=== PATIENT | female | born 1985 | race African-American/Black ===

== ENCOUNTER 2017-07-29 18:00 | Emergency (ER) | payer SELFPAY, OTHER | END 2017-07-29 19:18 | disposition left against medical advice (07) | LOC: FTE 19:18 | DX: Z53.21 Procedure and treatment not carried out due to patient leaving prior to being seen by health care provider (principal) ==

== ENCOUNTER 2017-07-29 19:05 | Outpatient (CLI) | payer OTHER | END 2017-07-29 23:05 | disposition home or self-care (01) | LOC: OBT 19:05 → L-D 19:07 → OBT 23:05 | DX: O62.9 Abnormality of forces of labor, unspecified (principal); Z3A.28 28 weeks gestation of pregnancy | CPT/HCPCS: 76815; 76817 ==

== ENCOUNTER 2017-09-11 06:06 | Inpatient (IN) | payer OTHER ==
[2017-09-11] MEDS: LACTATED RINGER'S 1,000 ML IV ×3 (06:41→23:07)
[2017-09-11] MEDS ORDERED: IBUPROFEN 600 MG TAB PO (07:00)
[2017-09-11] MEDS ORDERED: BUTORPHANOL 1 MG INJ IV (07:00)
[2017-09-11] MEDS ORDERED: CARBOPROST 250 MCG INJ IM (07:00)
[2017-09-11] MEDS ORDERED: CA GLUCONATE (GM) 10% 10ML INJ IV (07:00)
[2017-09-11] MEDS ORDERED: MISOPROSTOL 200 MCG TAB PR (07:00)
[2017-09-11] MEDS: LORAZEPAM 2 MG INJ IV (07:00)
[2017-09-11] MEDS ORDERED: METHYLERGONOVINE 0.2 MG INJ IM (07:00)
[2017-09-11] MEDS ORDERED: MIDAZOLAM 1 MG/ML 2 ML INJ (07:00)
[2017-09-11] MEDS ORDERED: BUTORPHANOL 2 MG INJ IV (07:00)
[2017-09-11] MEDS ORDERED: OXYTOCIN 30 UNITS/LR 500 ML IV ×2 (07:00)
[2017-09-11] MEDS ORDERED: LIDOCAINE 1% (MPF) 30 ML INJ INJ (07:00)
[2017-09-11] MEDS: LEVETIRACETAM 1000 MG (PMX) 100 ML IVPB (07:07)
[2017-09-11 07:29] LABS: ADD MAN DIFF? NO
[2017-09-11 07:31] LABS: WHITE BLOOD COUNT 19.5 10^3/ul (4.8-10.8)
[2017-09-11 07:31] LABS: BASOPHILS % 0.2 % (0.0-2.0); EOSINOPHILS # 0.1 10^3/ul (0.0-0.5); EOSINOPHILS % 0.3 % (0.0-7.0); HEMATOCRIT 25.9 % (37.0-47.0); HEMOGLOBIN 8.7 g/dl (12.0-16.0); LYMPHOCYTES # 0.9 10^3/ul (0.8-2.9); LYMPHOCYTES % 4.7 % (15.0-51.0); MEAN CORPUSCULAR HEMOGLOBIN 26.8 pg (29.0-33.0); MEAN CORPUSCULAR HGB CONC 33.6 g/dl (32.0-37.0); MEAN CORPUSCULAR VOLUME 79.7 fl (82.0-101.0); MEAN PLATELET VOLUME 9.8 fl (7.4-10.4); MONOCYTE # 0.6 10^3/ul (0.3-0.9); MONOCYTES % 2.9 % (0.0-11.0); NEUTROPHIL # 17.7 10^3/ul (1.6-7.5); PLATELET COUNT 236 10^3/UL (140-415); RED BLOOD COUNT 3.25 10^6/ul (4.20-5.40); RED CELL DISTRIBUTION WIDTH 16.4 % (11.5-14.5)
[2017-09-11] MEDS: MAGNESIUM SULFATE 20 GM/500 ML 500 ML IV ×2 (07:34→18:20)
[2017-09-11] MEDS: morphine 4 MG/ML VIAL IV (07:38)
[2017-09-11 07:58] LABS: INR 1.16; PT RATIO 1.2
[2017-09-11 07:59] LABS: PARTIAL THROMBOPLASTIN TIME 31.5 Sec (25.0-35.0)
[2017-09-11 08:22] LABS: HEPATITIS B SURFACE ANTIGEN NEGATIVE (NEGATIVE)
[2017-09-11] MEDS: OXYTOCIN 30 UNITS/LR 500 ML IV (09:37)
[2017-09-11] MEDS: morphine 2 MG INJ IV ×2 (11:58→21:53)
[2017-09-11 12:48] LABS: MAGNESIUM 4.8 mg/dl (1.7-2.5)
[2017-09-11] MEDS: IBUPROFEN 600 MG TAB PO ×2 (13:13→18:09)
[2017-09-11 15:20] LABS: RAPID PLASMA REAGIN REACTIVE (NR)
[2017-09-11 18:50] LABS: MAGNESIUM 5.6 mg/dl (1.7-2.5)
[2017-09-11] MEDS: LEVETIRACETAM 500 MG (PMX) 100 ML IVPB (20:49)
[2017-09-11] MEDS: LACOSAMIDE (100 MG/10 ML PO SYR) PO (22:30)
[2017-09-12] MEDS: LACOSAMIDE (100 MG/10 ML PO SYR) PO ×2 (00:04→10:24)
[2017-09-12] MEDS: IBUPROFEN 600 MG TAB PO ×3 (00:24→12:00)
[2017-09-12 00:47] LABS: MAGNESIUM 3.2 mg/dl (1.7-2.5)
[2017-09-12] MEDS: morphine 2 MG INJ IV ×3 (01:02→07:05)
[2017-09-12] MEDS: MAGNESIUM SULFATE 20 GM/500 ML 500 ML IV (03:24)
[2017-09-12 05:47] LABS: ADD MAN DIFF? NO
[2017-09-12 05:50] LABS: WHITE BLOOD COUNT 16.7 10^3/ul (4.8-10.8)
[2017-09-12 05:50] LABS: BASOPHILS % 0.2 % (0.0-2.0); EOSINOPHILS # 0.2 10^3/ul (0.0-0.5); HEMATOCRIT 25.8 % (37.0-47.0); HEMOGLOBIN 8.5 g/dl (12.0-16.0); LYMPHOCYTES % 11.9 % (15.0-51.0); MEAN CORPUSCULAR HEMOGLOBIN 26.2 pg (29.0-33.0); MEAN CORPUSCULAR HGB CONC 32.9 g/dl (32.0-37.0); MEAN CORPUSCULAR VOLUME 79.6 fl (82.0-101.0); MEAN PLATELET VOLUME 9.2 fl (7.4-10.4); MONOCYTE # 0.8 10^3/ul (0.3-0.9); MONOCYTES % 4.5 % (0.0-11.0); NEUTROPHIL # 13.7 10^3/ul (1.6-7.5); NEUTROPHILS % 81.8 % (39.0-77.0); PLATELET COUNT 252 10^3/UL (140-415); RED BLOOD COUNT 3.24 10^6/ul (4.20-5.40); RED CELL DISTRIBUTION WIDTH 16.7 % (11.5-14.5)
[2017-09-12] MEDS: LACTATED RINGER'S 1,000 ML IV (05:57)
[2017-09-12 06:14] LABS: ALANINE AMINOTRANSFERASE 22 IU/L (13-69); ALKALINE PHOSPHATASE 100 IU/L (42-121); ANION GAP 8 (8-16); ASPARTATE AMINO TRANSFERASE 23 IU/L (15-46); BILIRUBIN,INDIRECT 0.1 mg/dl (0-1.1); BILIRUBIN,TOTAL 0.1 mg/dl (0.2-1.3); CALCIUM 7.8 mg/dl (8.4-10.2); CARBON DIOXIDE 22 mmol/L (21-31); CHLORIDE 113 mmol/L (97-110); CREATININE 0.49 mg/dl (0.44-1.00); GLUCOSE 114 mg/dl (70-220); SODIUM 139 mmol/L (135-144); URIC ACID 3.9 mg/dl (3.1-7.9)
[2017-09-12 06:15] LABS: BLOOD UREA NITROGEN < 2 mg/dl (7-20)
[2017-09-12 06:17] LABS: MAGNESIUM 3.9 mg/dl (1.7-2.5)
[2017-09-12] MEDS: LEVETIRACETAM 500 MG (PMX) 100 ML IVPB (08:51)
[2017-09-13 19:26] LABS: FLUORESCENT TREPONEMAL AB REACTIVE (NON-REACTIVE)
== END 2017-09-12 14:35 | disposition left against medical advice (07) | DRG 775 ==
LOC: OBT 06:06 → L-D 06:10 → ICU 09:03
PROVIDERS: Obstetrics & Gynecology
PROC: 10E0XZZ Delivery of Products of Conception, External Approach (ICD-10-PCS; principal; 2017-09-11)
DX: O60.12X0 Preterm labor second trimester with preterm delivery second trimester, not applicable or unspecified (principal); O99.355 Diseases of the nervous system complicating the puerperium; O99.13 Other diseases of the blood and blood-forming organs and certain disorders involving the immune mechanism complicating the puerperium; Z37.0 Single live birth; Z3A.27 27 weeks gestation of pregnancy; G40.901 Epilepsy, unspecified, not intractable, with status epilepticus; D72.829 Elevated white blood cell count, unspecified
CPT/HCPCS: 71045; 80053; 83735; 84560; 85025; 85610; 85730; 86592; 86850; 86900; 86901; 87340; 88307; 95819; 99464

== ENCOUNTER 2017-11-09 17:17 | Emergency (ER) | payer OTHER ==
[2017-11-09 17:58] LABS: ADD MAN DIFF? NO
[2017-11-09 18:23] LABS: WHITE BLOOD COUNT 5.6 10^3/ul (4.8-10.8)
[2017-11-09 18:23] LABS: ANION GAP 13 (8-16); BLOOD UREA NITROGEN 10 mg/dl (7-20); CALCIUM 9.1 mg/dl (8.4-10.2); CARBON DIOXIDE 24 mmol/L (21-31); CHLORIDE 108 mmol/L (97-110); CREATININE 0.68 mg/dl (0.44-1.00); GLUCOSE 97 mg/dl (70-220); POTASSIUM 4.3 mmol/L (3.5-5.1); SODIUM 141 mmol/L (135-144)
[2017-11-09 18:24] LABS: BASOPHILS % 0.4 % (0.0-2.0); EOSINOPHILS # 0.2 10^3/ul (0.0-0.5); EOSINOPHILS % 2.7 % (0.0-7.0); HEMATOCRIT 36.7 % (37.0-47.0); HEMOGLOBIN 11.8 g/dl (12.0-16.0); IMMATURE GRANS #M 0.01 10^3/ul; IMMATURE GRANS % (M) 0.2 %; LYMPHOCYTES # 1.3 10^3/ul (0.8-2.9); MEAN CORPUSCULAR HGB CONC 32.2 g/dl (32.0-37.0); MEAN CORPUSCULAR VOLUME 77.8 fl (82.0-101.0); MEAN PLATELET VOLUME 8.6 fl (7.4-10.4); MONOCYTE # 0.3 10^3/ul (0.3-0.9); MONOCYTES % 5.9 % (0.0-11.0); NEUTROPHIL # 3.8 10^3/ul (1.6-7.5); NEUTROPHILS % 67.8 % (39.0-77.0); PLATELET COUNT 346 10^3/UL (140-415); RED BLOOD COUNT 4.72 10^6/ul (4.20-5.40); RED CELL DISTRIBUTION WIDTH 16.7 % (11.5-14.5)
== END 2017-11-09 19:00 | disposition home or self-care (01) ==
LOC: E/R 17:17
DX: G40.909 Epilepsy, unspecified, not intractable, without status epilepticus (principal); R25.1 Tremor, unspecified; R40.2362 Coma scale, best motor response, obeys commands, at arrival to emergency department; R40.2252 Coma scale, best verbal response, oriented, at arrival to emergency department; R40.2132 Coma scale, eyes open, to sound, at arrival to emergency department
CPT/HCPCS: 36415; 80048; 82962; 85025; 99283

== ENCOUNTER 2017-12-20 14:47 | Emergency (ER) | payer OTHER ==
[2017-12-20 15:07] LABS: ADD MAN DIFF? NO
[2017-12-20 15:37] LABS: ANION GAP 11 (8-16); BLOOD UREA NITROGEN 4 mg/dl (7-20); CALCIUM 8.8 mg/dl (8.4-10.2); CARBON DIOXIDE 22 mmol/L (21-31); CHLORIDE 113 mmol/L (97-110); GLUCOSE 103 mg/dl (70-220)
[2017-12-20] MEDS: SOD CHLORIDE 0.9% 1,000 ML IV (15:45)
[2017-12-20 15:49] LABS: SODIUM 141 mmol/L (135-144)
[2017-12-20 15:56] LABS: WHITE BLOOD COUNT 4.4 10^3/ul (4.8-10.8)
[2017-12-20 15:56] LABS: BASOPHILS % 0.5 % (0.0-2.0); EOSINOPHILS # 0.3 10^3/ul (0.0-0.5); HEMATOCRIT 38.9 % (37.0-47.0); HEMOGLOBIN 12.1 g/dl (12.0-16.0); LYMPHOCYTES # 2.2 10^3/ul (0.8-2.9); LYMPHOCYTES % 49.4 % (15.0-51.0); MEAN CORPUSCULAR HEMOGLOBIN 24.4 pg (29.0-33.0); MEAN CORPUSCULAR HGB CONC 31.1 g/dl (32.0-37.0); MEAN CORPUSCULAR VOLUME 78.6 fl (82.0-101.0); MEAN PLATELET VOLUME 9.5 fl (7.4-10.4); MONOCYTE # 0.4 10^3/ul (0.3-0.9); NEUTROPHIL # 1.6 10^3/ul (1.6-7.5); NEUTROPHILS % 35.9 % (39.0-77.0); PLATELET COUNT 317 10^3/UL (140-415); RED BLOOD COUNT 4.95 10^6/ul (4.20-5.40); RED CELL DISTRIBUTION WIDTH 16.8 % (11.5-14.5)
[2017-12-20 15:59] LABS: ADD UMIC YES; POSITIVE DIFF @See below; UR ASCORBIC ACID NEGATIVE (NEGATIVE); UR BACTERIA FEW /HPF (NONE SEEN); UR BILIRUBIN (Dip) NEGATIVE (NEGATIVE); UR BLOOD (Dip) 1+ mg/dL (NEGATIVE); UR CLARITY CLEAR (CLEAR); UR COLOR YELLOW (YELLOW); UR GLUCOSE (Dip) NEGATIVE (NEGATIVE); UR KETONES (Dip) NEGATIVE (NEGATIVE); UR LEUKOCYTE ESTERASE (Dip) NEGATIVE Leu/ul (NEGATIVE); UR NITRITE (Dip) NEGATIVE (NEGATIVE); UR RBC 6 /HPF (0-5); UR SPECIFIC GRAVITY (Dip) 1.009 (1.003-1.030); UR SQUAMOUS EPITHELIAL CELL FEW /HPF (FEW); UR TOTAL PROTEIN (Dip) NEGATIVE (NEGATIVE); UR UROBILINOGEN (Dip) NEGATIVE (NEGATIVE); UR WBC 0 /HPF (0-5)
[2017-12-20 16:27] LABS: ANISOCYTOSIS 2+ (0-0); EOSINOPHILS % (M) 4 % (0-7); GIANT THROMBO% (M) 1 % (0-0); LYMPHOCYTES #M 2.8 10^3/ul (0.8-2.9); LYMPHOCYTES % (M) 65 % (15-51); MICROCYTOSIS 1+ (0-0); MONOCYTE #M 0.2 10^3/ul (0.3-0.9); MONOCYTES % (M) 6 % (0-11); OVALOCYTES 2+ (0-0); PLATELET ESTIMATE NORMAL; POIKILOCYTOSIS 3+ (0-0); SEGMENTED NEUTROPHILS (M) % 25 % (39-77); SMUDGE%M 13 % (0-0); TEAR DROP CELLS 1+ (0-0)
== END 2017-12-20 16:37 | disposition home or self-care (01) ==
LOC: E/R 14:47
DX: R42 Dizziness and giddiness (principal); R40.2142 Coma scale, eyes open, spontaneous, at arrival to emergency department; R40.2362 Coma scale, best motor response, obeys commands, at arrival to emergency department; R40.2252 Coma scale, best verbal response, oriented, at arrival to emergency department
CPT/HCPCS: 36415; 71045; 80048; 81001; 81025; 82962; 85025; 93005; 99285-25

== ENCOUNTER 2017-12-29 16:56 | Emergency (ER) | payer OTHER ==
[2017-12-29] MEDS: LORAZEPAM 2 MG INJ IV (17:25)
[2017-12-29] MEDS: SOD CHLORIDE 0.9% 1,000 ML IV (17:28)
[2017-12-29 17:37] LABS: ADD MAN DIFF? NO
[2017-12-29 17:40] LABS: BASOPHILS % 0.4 % (0.0-2.0); EOSINOPHILS # 0.1 10^3/ul (0.0-0.5); EOSINOPHILS % 1.1 % (0.0-7.0); HEMATOCRIT 34.9 % (37.0-47.0); HEMOGLOBIN 11.3 g/dl (12.0-16.0); LYMPHOCYTES # 1.5 10^3/ul (0.8-2.9); LYMPHOCYTES % 28.5 % (15.0-51.0); MEAN CORPUSCULAR HEMOGLOBIN 24.7 pg (29.0-33.0); MEAN CORPUSCULAR HGB CONC 32.4 g/dl (32.0-37.0); MEAN CORPUSCULAR VOLUME 76.2 fl (82.0-101.0); MEAN PLATELET VOLUME 8.9 fl (7.4-10.4); MONOCYTE # 0.3 10^3/ul (0.3-0.9); MONOCYTES % 5.1 % (0.0-11.0); NEUTROPHIL # 3.5 10^3/ul (1.6-7.5); NEUTROPHILS % 64.7 % (39.0-77.0); PLATELET COUNT 369 10^3/UL (140-415); RED BLOOD COUNT 4.58 10^6/ul (4.20-5.40); RED CELL DISTRIBUTION WIDTH 16.5 % (11.5-14.5)
[2017-12-29 17:40] LABS: WHITE BLOOD COUNT 5.3 10^3/ul (4.8-10.8)
[2017-12-29 17:59] LABS: ALANINE AMINOTRANSFERASE 14 IU/L (13-69); ALBUMIN 3.9 g/dl (3.3-4.9); ALBUMIN/GLOBULIN RATIO 1.34; ALKALINE PHOSPHATASE 60 IU/L (42-121); ANION GAP 8 (8-16); ASPARTATE AMINO TRANSFERASE 18 IU/L (15-46); BILIRUBIN,INDIRECT 0.3 mg/dl (0-1.1); BILIRUBIN,TOTAL 0.3 mg/dl (0.2-1.3); BLOOD UREA NITROGEN 3 mg/dl (7-20); CARBON DIOXIDE 26 mmol/L (21-31); CHLORIDE 112 mmol/L (97-110); CREATININE 0.77 mg/dl (0.44-1.00); GLUCOSE 95 mg/dl (70-220); POTASSIUM 3.9 mmol/L (3.5-5.1); SODIUM 142 mmol/L (135-144); TOTAL PROTEIN 6.8 g/dl (6.1-8.1)
[2017-12-29 18:01] LABS: ETHANOL < 10.0 mg/dl
== END 2017-12-29 19:36 | disposition home or self-care (01) ==
LOC: E/R 19:36
DX: G40.909 Epilepsy, unspecified, not intractable, without status epilepticus (principal); R40.2142 Coma scale, eyes open, spontaneous, at arrival to emergency department; R40.2252 Coma scale, best verbal response, oriented, at arrival to emergency department; R40.2362 Coma scale, best motor response, obeys commands, at arrival to emergency department
CPT/HCPCS: 80053; 80307; 84703; 85025; 96374; 99284-25

== ENCOUNTER 2017-12-30 15:21 | Emergency (ER) | payer OTHER ==
[2017-12-30] MEDS ORDERED: SOD CHLORIDE 0.9% 1,000 ML IV (16:00)
[2017-12-30] MEDS ORDERED: DIPHENHYDRAMINE 50 MG INJ IV (16:00)
[2017-12-30 16:05] LABS: URINE BLOOD (Dip) POC 3+ (NEGATIVE); URINE GLUCOSE (Dip) POC Negative (NEGATIVE); URINE KETONES (Dip) POC Negative (NEGATIVE); URINE LEUKOCYTE EST (Dip) POC Negative (NEGATIVE); URINE NITRITE (Dip) POC Negative (NEGATIVE); URINE TOTAL PROTEIN POC Negative (NEGATIVE)
[2017-12-30] MEDS: DIPHENHYDRAMINE 50 MG INJ IM (16:38)
[2017-12-30 17:38] LABS: AMPHETAMINE/METHAMPHETAMINE Negative (NEGATIVE); BARBITURATES Negative (NEGATIVE); BENZODIAZEPINES Negative (NEGATIVE); CANNABINOIDS Positive (NEGATIVE); COCAINE Negative (NEGATIVE); OPIATES Negative (NEGATIVE)
== END 2017-12-30 18:50 | disposition home or self-care (01) ==
LOC: E/R 15:21
DX: R31.9 Hematuria, unspecified (principal); G47.00 Insomnia, unspecified; F12.10 Cannabis abuse, uncomplicated
CPT/HCPCS: 80307; 81003; 96372; 99284-25

== ENCOUNTER 2017-12-30 20:26 | Emergency (ER) | payer OTHER ==
[2017-12-30 21:24] LABS: ADD MAN DIFF? NO
[2017-12-30 21:26] LABS: WHITE BLOOD COUNT 5.1 10^3/ul (4.8-10.8)
[2017-12-30 21:27] LABS: BASOPHILS % 0.2 % (0.0-2.0); EOSINOPHILS # 0.1 10^3/ul (0.0-0.5); EOSINOPHILS % 2.2 % (0.0-7.0); HEMOGLOBIN 11.1 g/dl (12.0-16.0); LYMPHOCYTES # 1.7 10^3/ul (0.8-2.9); LYMPHOCYTES % 32.5 % (15.0-51.0); MEAN CORPUSCULAR HEMOGLOBIN 24.6 pg (29.0-33.0); MEAN CORPUSCULAR HGB CONC 31.7 g/dl (32.0-37.0); MEAN CORPUSCULAR VOLUME 77.6 fl (82.0-101.0); MEAN PLATELET VOLUME 9.2 fl (7.4-10.4); MONOCYTE # 0.4 10^3/ul (0.3-0.9); MONOCYTES % 7.1 % (0.0-11.0); NEUTROPHILS % 57.8 % (39.0-77.0); PLATELET COUNT 369 10^3/UL (140-415); RED BLOOD COUNT 4.51 10^6/ul (4.20-5.40); RED CELL DISTRIBUTION WIDTH 16.4 % (11.5-14.5)
[2017-12-30 22:00] LABS: CARBON DIOXIDE 24 mmol/L (21-31); CHLORIDE 112 mmol/L (97-110); POTASSIUM 3.8 mmol/L (3.5-5.1); SODIUM 143 mmol/L (135-144)
[2017-12-30 22:01] LABS: ACETAMINOPHEN < 10.0 ug/ml (10.0-30.0); ALANINE AMINOTRANSFERASE 15 IU/L (13-69); ALBUMIN 3.8 g/dl (3.3-4.9); ALBUMIN/GLOBULIN RATIO 1.31; ALKALINE PHOSPHATASE 53 IU/L (42-121); ANION GAP 11 (8-16); ASPARTATE AMINO TRANSFERASE 20 IU/L (15-46); BILIRUBIN,INDIRECT 0.3 mg/dl (0-1.1); BILIRUBIN,TOTAL 0.3 mg/dl (0.2-1.3); BLOOD UREA NITROGEN 2 mg/dl (7-20); CALCIUM 9.1 mg/dl (8.4-10.2); CREATININE 0.72 mg/dl (0.44-1.00); GLUCOSE 97 mg/dl (70-220); TOTAL PROTEIN 6.7 g/dl (6.1-8.1)
[2017-12-30 22:02] LABS: ETHANOL < 10.0 mg/dl; SALICYLATE < 1.0 mg/dl (5.0-30.0)
== END 2017-12-30 22:24 | disposition home or self-care (01) ==
LOC: E/R 20:26
DX: R56.9 Unspecified convulsions (principal); R45.1 Restlessness and agitation; D50.9 Iron deficiency anemia, unspecified; F91.8 Other conduct disorders
CPT/HCPCS: 36415; 80053; 80307; 82962; 85025; 99283

== ENCOUNTER 2018-09-14 15:21 | Emergency (ER) | payer OTHER ==
[2018-09-14] MEDS ORDERED: LORAZEPAM 2 MG INJ (15:36)
[2018-09-14] MEDS ORDERED: HALOPERIDOL 5 MG INJ (15:46)
[2018-09-14] MEDS: HALOPERIDOL 5 MG INJ IM (15:52)
[2018-09-14] MEDS: LORAZEPAM 2 MG INJ IV (15:52)
[2018-09-14] MEDS ORDERED: HALOPERIDOL 5 MG INJ IV (16:00)
[2018-09-14 16:11] LABS: ADD MAN DIFF? NO
[2018-09-14 16:18] LABS: BASOPHILS % 0.3 % (0.0-2.0); EOSINOPHILS % 0.3 % (0.0-7.0); HEMATOCRIT 40.9 % (37.0-47.0); LYMPHOCYTES # 1.2 10^3/ul (0.8-2.9); LYMPHOCYTES % 15.9 % (15.0-51.0); MEAN CORPUSCULAR HEMOGLOBIN 24.4 pg (29.0-33.0); MEAN CORPUSCULAR HGB CONC 31.8 g/dl (32.0-37.0); MEAN CORPUSCULAR VOLUME 76.7 fl (82.0-101.0); MEAN PLATELET VOLUME 8.8 fl (7.4-10.4); MONOCYTE # 0.3 10^3/ul (0.3-0.9); MONOCYTES % 3.4 % (0.0-11.0); NEUTROPHIL # 5.9 10^3/ul (1.6-7.5); NEUTROPHILS % 79.8 % (39.0-77.0); PLATELET COUNT 440 10^3/UL (140-415); RED BLOOD COUNT 5.33 10^6/ul (4.20-5.40); RED CELL DISTRIBUTION WIDTH 16.8 % (11.5-14.5)
[2018-09-14 16:18] LABS: WHITE BLOOD COUNT 7.4 10^3/ul (4.8-10.8)
[2018-09-14] MEDS: SOD CHLORIDE 0.9% 1,000 ML IV (16:27)
[2018-09-14] MEDS: ONDANSETRON 4 MG INJ IV (16:29)
[2018-09-14 16:36] LABS: ALANINE AMINOTRANSFERASE 70 IU/L (13-69); ALBUMIN 4.7 g/dl (3.3-4.9); ALBUMIN/GLOBULIN RATIO 1.09; ALKALINE PHOSPHATASE 76 IU/L (42-121); ANION GAP 11 (5-13); ASPARTATE AMINO TRANSFERASE 62 IU/L (15-46); BILIRUBIN,INDIRECT 0.6 mg/dl (0-1.1); BILIRUBIN,TOTAL 0.6 mg/dl (0.2-1.3); BLOOD UREA NITROGEN 6 mg/dl (7-20); CALCIUM 9.3 mg/dl (8.4-10.2); CARBON DIOXIDE 22 mmol/L (21-31); CHLORIDE 110 mmol/L (97-110); CREATININE 0.92 mg/dl (0.44-1.00); Estimated GFR > 60 mL/min (>60); GLUCOSE 90 mg/dl (70-220); LIPASE 88 U/L (23-300); POTASSIUM 5.7 mmol/L (3.5-5.1); SODIUM 143 mmol/L (135-144)
[2018-09-14 17:55] LABS: ANION GAP 9 (5-13); BLOOD UREA NITROGEN 6 mg/dl (7-20); CALCIUM 9.3 mg/dl (8.4-10.2); CARBON DIOXIDE 23 mmol/L (21-31); CHLORIDE 111 mmol/L (97-110); Estimated GFR > 60 mL/min (>60); GLUCOSE 99 mg/dl (70-220); SODIUM 143 mmol/L (135-144)
== END 2018-09-14 18:30 | disposition home or self-care (01) ==
LOC: E/R 15:21
DX: F44.5 Conversion disorder with seizures or convulsions (principal); R40.2142 Coma scale, eyes open, spontaneous, at arrival to emergency department; R40.2312 Coma scale, best motor response, none, at arrival to emergency department; R40.2222 Coma scale, best verbal response, incomprehensible words, at arrival to emergency department
CPT/HCPCS: 36415; 80048; 80053; 81025; 83690; 85025; 96361; 96372; 96374; 99284-25